=== PATIENT | male | born 2000 | race Caucasian/White ===

== ENCOUNTER 2018-11-03 21:17 | Emergency (ER) | payer MEDICAID ==
[2018-11-03 21:40] VITALS: BP 146/88
--- NOTE | 2018-11-03 22:17 | EDM.PDOC ---
ED HPI GENERAL MEDICAL PROBLEM - General Chief Complaint: Lower Extremity Injury/Pain Stated Complaint: SORE FOOT NOT AN ACCIDENT Time Seen by Provider: 11/03/18 21:50 Source of Information: Reports: Patient History Limitations: Reports: No Limitations - History of Present Illness INITIAL COMMENTS - FREE TEXT/NARRATIVE: 17-year-old male with right foot pain for the past 2 days, intensely painful over the MP joint area, sole of the foot from the third to fourth metatarsal. No significant swelling or bruising, no specific injury. He has not had these symptoms in the past. Onset: Gradual Duration: Day(s): (Symptoms for several days) Location: Reports: Lower Extremity, Right Associated Symptoms: Reports: No Other Symptoms - Related Data Allergies Allergy/AdvReac Type Severity Reaction Status Date / Time No Known Allergies Allergy Verified 11/03/18 21:40 Home Meds: Home Meds NK [No Known Home Meds] 04/12/15 [History] Past Medical History - Past Health History Medical/Surgical History: Denies Medical/Surgical History Social & Family History - Tobacco Use Smoking Status *Q: Current Every Day Smoker Years of Tobacco use: 2 Packs/Tins Daily: 1 Review of Systems - Review of Systems Review Of Systems: See Below Constitutional: Denies: Fever Respiratory: Reports: No Symptoms Cardiovascular: Reports: No Symptoms GI/Abdominal: Reports: No Symptoms Skin: Reports: No Symptoms Neurological: Reports: No Symptoms ED EXAM, GENERAL - Physical Exam Exam: See Below Exam Limited By: No Limitations General Appearance: Alert, No Apparent Distress Respiratory/Chest: No Respiratory Distress Extremities: Other (Exam is otherwise limited to the feet. He has palpation tenderness to the underside of the MP joints of the third and fourth metatarsals right foot. There is no swelling or bruising.) Course - Vital Signs Last Recorded V/S: Last Vital Signs Temp 97.3 F 11/03/18 21:45 Pulse 64 11/03/18 21:45 Resp 17 11/03/18 21:45 BP 146/88 H 11/03/18 21:45 Pulse Ox 97 11/03/18 21:45 - Re-Assessments/Exams Free Text/Narrative Re-Assessment/Exam: 11/03/18 22:15 X-ray shows no abnormality. Patient was encouraged to take 500 mg of naproxen 3 times a day, increase activity as tolerated, and consider rechecking with Dr. Haque at the clinic in the next 2-3 days if not improving with naproxen. Departure - Departure Time of Disposition: 22:38 Disposition: Home, Self-Care 01 Condition: Good Clinical Impression: Metatarsalgia of right foot - Discharge Information Instructions: Musculoskeletal Pain Referrals: PCP,None [Primary Care Provider] - Forms: ED Department Discharge Care Plan Goals: Take naproxen 3 times a day, increase activity as tolerated, and call the clinic to make an appointment with Dr. tima Haque Sunday or Sunday this or next week if not improving satisfactorily.
--- NOTE | 2018-11-03 22:31 | CRLCR ---
Indication: Pain Technique: Three views right foot Comparison: None Findings: Bones: Alignment is normal. No fractures or bone lesions. Joint spaces: Unremarkable. Soft tissues: Soft tissue swelling of the 1st toe. Impression: Soft tissue swelling of the 1st toe. No acute osseous abnormality. Dictated by Adriana Roberson MD @ Nov 03 2018 10:29PM Signed by Dr. Adriana Roberson @ Nov 03 2018 10:29PM
== END 2018-11-03 22:38 | disposition home or self-care (01) ==
LOC: JP.ED 21:17
DX: M77.41 Metatarsalgia, right foot (principal); F17.210 Nicotine dependence, cigarettes, uncomplicated
CPT/HCPCS: 73630-RT; 99283-25

== ENCOUNTER 2019-11-23 19:21 | Emergency (ER) | payer MEDICAID ==
[2019-11-23 19:43] VITALS: BP 147/87; PULSE 97
[2019-11-23] MEDS ORDERED: Ketorolac 60 MG/2 ML SDV IM ONE (19:55)
--- NOTE | 2019-11-23 19:58 | EDM.PDOC ---
ED HPI GENERAL MEDICAL PROBLEM - General Chief Complaint: Genitourinary Problem Stated Complaint: GROIN PAIN Time Seen by Provider: 11/23/19 19:51 Source of Information: Reports: Patient, RN Notes Reviewed History Limitations: Reports: No Limitations - History of Present Illness INITIAL COMMENTS - FREE TEXT/NARRATIVE: 19-year-old gentleman presents emergency department today complaint of testicular pain, he states he awoke this morning right testicular pain it has gotten worse he feels the right testicle is slightly enlarged compared to the left he does have pain going up into his groin and that is where he is most tender right groin Pain Score (Numeric/FACES): 6 - Related Data Allergies Allergy/AdvReac Type Severity Reaction Status Date / Time No Known Allergies Allergy Verified 11/23/19 19:43 Home Meds: Home Meds NK [No Known Home Meds] 04/12/15 [History] Past Medical History Genitourinary History: Reports: STD Musculoskeletal History: Reports: Fracture Neurological History: Reports: Concussion - Past Surgical History HEENT Surgical History: Reports: Myringotomy w Tube(s), Tonsillectomy Social & Family History - Tobacco Use Smoking Status *Q: Current Every Day Smoker Years of Tobacco use: 6 Packs/Tins Daily: 1 - Caffeine Use Caffeine Use: Reports: Coffee, Energy Drinks, Soda - Recreational Drug Use Recreational Drug Use: No ED ROS GENERAL - Review of Systems Review Of Systems: See Below Constitutional: Reports: No Symptoms GI/Abdominal: Reports: No Symptoms. Denies: Nausea : Reports: Other (Painful testicle right side). Denies: Dysuria ED EXAM, RENAL/ - Physical Exam Exam: See Below Text/Narrative:: Examination of the genitalia revealed Tristen stage V male circumcised cremasteric reflexes present on both sides there is no change in tenderness with elevation of the testicle he is tender to palpation over the inguinal canal on the right side Exam Limited By: No Limitations General Appearance: Alert, WD/WN, No Apparent Distress Course - Vital Signs Last Recorded V/S: Last Vital Signs Temp 97.7 F 11/23/19 19:44 Pulse 97 11/23/19 19:44 Resp 16 11/23/19 19:44 BP 147/87 H 11/23/19 19:44 Pulse Ox 98 11/23/19 19:44 - Orders/Labs/Meds Orders: Active Orders 24 hr Category Date Time Status Scrotal Duplex Ltd [US] Stat Exams 11/23/19 21:09 Ordered Scrotum and Contents [US] Stat Exams 11/23/19 19:55 Ordered CHLAMYDIA/GC AMPLIFICATION Stat Lab 11/23/19 21:08 Ordered Azithromycin [Zithromax] Med 11/23/19 21:11 Once 1,000 mg PO ONETIME ONE cefTRIAXone [Rocephin] Med 11/23/19 21:11 Once 0.25 gm IM ONETIME ONE Meds: Medications Discontinued Medications Generic Name Dose Route Start Last Admin Trade Name Freq PRN Reason Stop Dose Admin Ketorolac Tromethamine 60 mg 11/23/19 19:55 11/23/19 20:11 Toradol IM 11/23/19 19:56 Not Given ONETIME ONE Departure - Departure Time of Disposition: 21:14 Disposition: Home, Self-Care 01 Condition: Fair Clinical Impression: Enlarged lymph node - Discharge Information Instructions: Sexually Transmitted Disease, [id number] Referrals: PCP,None [Primary Care Provider] - Forms: ED Department Discharge Additional Instructions: We will contact you with results for chlamydia and gonorrhea, please follow-up with your primary in the next 3 to 5 days if not better Sepsis Event Note - Evaluation Sepsis Screening Result: No Definite Risk - Focused Exam Vital Signs: Vital Signs Temp Pulse Resp BP Pulse Ox 11/23/19 19:44 97.7 F 97 16 147/87 H 98 11/23/19 19:41 97.7 F 97 16 147/87 H 98 Date Exam was Performed: 11/23/19 Time Exam was Performed: 21:12 - My Orders Last 24 Hours: My Active Orders 11/23/19 19:55 Scrotum and Contents [US] Stat 11/23/19 21:08 CHLAMYDIA/GC AMPLIFICATION Stat 11/23/19 21:09 Scrotal Duplex Ltd [US] Stat 11/23/19 21:11 Azithromycin [Zithromax] 1,000 mg PO ONETIME ONE cefTRIAXone [Rocephin] 0.25 gm IM ONETIME ONE - Assessment/Plan Last 24 Hours: My Active Orders 11/23/19 19:55 Scrotum and Contents [US] Stat 11/23/19 21:08 CHLAMYDIA/GC AMPLIFICATION Stat 11/23/19 21:09 Scrotal Duplex Ltd [US] Stat 11/23/19 21:11 Azithromycin [Zithromax] 1,000 mg PO ONETIME ONE cefTRIAXone [Rocephin] 0.25 gm IM ONETIME ONE Plan: Assessment Acuity = acute Site and laterality = inguinal lymph node inflammation concern for underlying STD Etiology = unknown Manifestations = none Location of injury = Home Lab values = ultrasound shows both testicles similar in size good blood flow both spermatic cords intact with good blood flow however to large lymph nodes tender to touch with ultrasound probe in the area where he describes pain. Urinalysis for GC and chlamydia was collected Plan Given his history recent sexual exposure 2 weeks unprotected possibility of an STD elected to treat empirically 1 g azithromycin in combination with Rocephin 250 mg x 1 we will contact him when those results become available otherwise follow-up primary care 3 to 5 days if not better. I did consult him about further evaluation with blood work he declined at this time. This note was dictated using [employer] voice recognition software please call with any questions on syntax or grammar.
[2019-11-23] MEDS ORDERED: Azithromycin 250 MG Tab PO ONE (21:11)
[2019-11-23] MEDS ORDERED: cefTRIAXone 1 GM Vial IM ONE (21:11)
--- NOTE | 2019-11-23 22:11 | CRLUS ---
INDICATION: Right testicular pain TECHNIQUE: Ultrasound of the scrotum and contents. Sonographic armenta-scale images were obtained with spectral and color Doppler waveform and spectral waveform analysis of the testicles. COMPARISON: None FINDINGS: Right testicle: 3.5 x 3.0 x 1.7 cm. Normal echotexture. No masses. No suspicious calcifications. Normal arterial and venous and blood flow using Doppler and spectral waveform analysis. Left testicle: 3.8 x 3.0 x 1.5 cm. Normal echotexture. No masses. No suspicious calcifications. Normal arterial and venous and blood flow using Doppler and spectral waveform analysis. Epididymis: Unremarkable bilaterally. Normal blood flow. Other: No sign of hydrocele. There is a right-sided varicocele. Scrotal wall is normal. Two subcentimeter lymph nodes seen within the right groin in the area of pain. IMPRESSION: No testicular torsion or intratesticular mass.. Right varicocele. Shotty right inguinal lymph nodes. Dictated by Adriana Roberson MD @ Nov 23 2019 10:06PM Signed by Dr. Adriana Roberson @ Nov 23 2019 10:10PM
--- NOTE | 2019-11-24 09:53 | CRLUS ---
Final Report: INDICATION: Right testicular pain TECHNIQUE: Ultrasound of the scrotum and contents. Sonographic armenta-scale images were obtained with spectral and color Doppler waveform and spectral waveform analysis of the testicles. COMPARISON: None FINDINGS: Right testicle: 3.5 x 3.0 x 1.7 cm. Normal echotexture. No masses. No suspicious calcifications. Normal arterial and venous and blood flow using Doppler and spectral waveform analysis. Left testicle: 3.8 x 3.0 x 1.5 cm. Normal echotexture. No masses. No suspicious calcifications. Normal arterial and venous and blood flow using Doppler and spectral waveform analysis. Epididymis: Unremarkable bilaterally. Normal blood flow. Other: No sign of hydrocele. There is a right-sided varicocele. Scrotal wall is normal. Two subcentimeter lymph nodes seen within the right groin in the area of pain. IMPRESSION: No testicular torsion or intratesticular mass.. Right varicocele. Shotty right inguinal lymph nodes. Dictated by Adriana Roberson MD @ Nov 23 2019 10:06PM Signed by: Adriana Roberson MD @11/23/2019 10:10:24 PM (Electronic Signature) MTDD
[2019-11-26 13:08] LABS: CHLAMYDIA TRACHOMATIS, NAA Negative (Negative); NEISSERIA GONORRHOEAE, NAA Negative (Negative)
== END 2019-11-23 21:46 | disposition home or self-care (01) ==
LOC: JP.ED 19:21
DX: R59.9 Enlarged lymph nodes, unspecified (principal); F17.210 Nicotine dependence, cigarettes, uncomplicated
CPT/HCPCS: 76870; 87491; 87591; 93976; 96372; 99284; A9270; J0696; J2001

== ENCOUNTER 2020-02-16 20:45 | Emergency (ER) | payer MEDICAID ==
[2020-02-16 21:04] VITALS: BP 146/94; PULSE 84
[2020-02-16] MEDS ORDERED: Bacitracin Oint 1 GM U/D Packet TOP ONE (21:13)
--- NOTE | 2020-02-16 21:25 | EDM.PDOC ---
ED HPI GENERAL MEDICAL PROBLEM - General Chief Complaint: Skin Complaint Stated Complaint: FISH HOOK R HAND Time Seen by Provider: 02/16/20 21:00 Source of Information: Reports: Patient History Limitations: Reports: No Limitations (Can ) - History of Present Illness INITIAL COMMENTS - FREE TEXT/NARRATIVE: 19-year-old male with a fishhook embedded into his thenar area of the right hand. No other injury. Onset: Sudden Duration: Hour(s): (Within the last 2 hours) Location: Reports: Upper Extremity, Right Associated Symptoms: Reports: No Other Symptoms - Related Data Allergies Allergy/AdvReac Type Severity Reaction Status Date / Time No Known Allergies Allergy Verified 02/16/20 21:05 Home Meds: Home Meds NK [No Known Home Meds] 04/12/15 [History] Past Medical History - Past Health History Medical/Surgical History: Denies Medical/Surgical History Genitourinary History: Reports: STD Musculoskeletal History: Reports: Fracture Neurological History: Reports: Concussion - Past Surgical History HEENT Surgical History: Reports: Myringotomy w Tube(s), Tonsillectomy Social & Family History - Tobacco Use Smoking Status *Q: Current Every Day Smoker Years of Tobacco use: 5 Packs/Tins Daily: 1 - Caffeine Use Caffeine Use: Reports: Coffee, Energy Drinks, Soda - Recreational Drug Use Recreational Drug Use: No ED ROS GENERAL - Review of Systems Review Of Systems: See Below Constitutional: Denies: Fever, Chills Respiratory: Reports: No Symptoms GI/Abdominal: Reports: No Symptoms Neurological: Reports: No Symptoms ED EXAM, SKIN/RASH Exam: See Below Exam Limited By: No Limitations General Appearance: Alert, No Apparent Distress Respiratory/Chest: No Respiratory Distress Extremities: Other (Exam is otherwise limited to the right hand. Patient has 1 karl of a treble hook embedded into the thenar area of the right palm.) Neurological: Alert, Oriented Psychiatric: Normal Affect, Normal Mood Course - Vital Signs Last Recorded V/S: Last Vital Signs Temp 98.4 F 02/16/20 21:04 Pulse 84 02/16/20 21:04 Resp 14 02/16/20 21:04 BP 146/94 H 02/16/20 21:04 Pulse Ox 99 02/16/20 21:04 - Orders/Labs/Meds Meds: Medications Discontinued Medications Generic Name Dose Route Start Last Admin Trade Name Freq PRN Reason Stop Dose Admin Bacitracin 1 dose 02/16/20 21:13 02/16/20 21:26 Bacitracin Oint 1 Gm TOP 02/16/20 21:14 1 dose ONETIME ONE Administration Lidocaine HCl 5 ml 02/16/20 21:13 02/16/20 21:26 Xylocaine-Mpf 1% INJECT 02/16/20 21:14 5 ml ONETIME ONE Administration - Re-Assessments/Exams Free Text/Narrative Re-Assessment/Exam: 02/16/20 21:24 The area was sterilized with alcohol, infiltrated with 1% lidocaine and the hook retracted with a needle hatch. Topical bacitracin and a Band-Aid was applied. Patient will keep the wound clean while healing, and recheck if concerns of infection or not healing satisfactorily. Departure - Departure Time of Disposition: 21:32 Disposition: Home, Self-Care 01 Clinical Impression: Puncture wound of hand, right Qualifiers: Encounter type: initial encounter Foreign body presence: with foreign body Qualified Code(s): S61.441A - Puncture wound with foreign body of right hand, initial encounter - Discharge Information Instructions: Puncture Wound Referrals: PCP,None [Primary Care Provider] - Forms: ED Department Discharge Care Plan Goals: Keep wound covered and clean while healing, and increase activity as tolerated. Recheck if concerns of infection or not healing satisfactorily. Sepsis Event Note (ED) - Evaluation Sepsis Screening Result: No Definite Risk - Focused Exam Vital Signs: Vital Signs Temp Pulse Resp BP Pulse Ox 02/16/20 21:04 98.4 F 84 14 146/94 H 99 02/16/20 21:02 98.4 F 84 14 146/94 H 99
== END 2020-02-16 21:31 | disposition home or self-care (01) ==
LOC: JP.ED 20:45
DX: S61.441A Puncture wound with foreign body of right hand, initial encounter (principal); F17.210 Nicotine dependence, cigarettes, uncomplicated; W45.8XXA Other foreign body or object entering through skin, initial encounter
CPT/HCPCS: 99283; J2001; 99282